=== PATIENT | male | born 2000 | race Caucasian/White ===

== ENCOUNTER 2024-04-18 17:00 | Emergency (ER) | payer OTHER ==
[~2024-04-18] VITALS: Ht 172.7 cm; Wt 62.0 kg
[2024-04-18 17:12] VITALS: O2SAT 98
[2024-04-18 17:16] VITALS: BP 132/84; PULSE 75; RESP 18; TEMP 98.4; O2SAT 98
[2024-04-18] MEDS ORDERED: IBUP-2029 MT (19:43)
== END 2024-04-18 23:00 | disposition home or self-care (01) ==
LOC: ER 17:00
DX: S60.011A Contusion of right thumb without damage to nail, initial encounter (principal); Z88.0 Allergy status to penicillin; Z90.49 Acquired absence of other specified parts of digestive tract; W23.0XXA Caught, crushed, jammed, or pinched between moving objects, initial encounter; Y93.89 Activity, other specified; Y92.89 Other specified places as the place of occurrence of the external cause; Y99.8 Other external cause status
CPT/HCPCS: 73140; 99283